=== PATIENT | male | born 1940 | race Caucasian/White ===

== ENCOUNTER → 2016-12-15 | Outpatient (CLI) | payer MEDICARE | END | disposition home or self-care (01) | LOC: CFH 10:19 | PROVIDERS: ATTEND Urology | DX: N20.0 Calculus of kidney (principal); Z80.42 Family history of malignant neoplasm of prostate | CPT/HCPCS: 74000 ==

== ENCOUNTER → 2017-11-16 | Outpatient (CLI) | payer MEDICARE | END | disposition home or self-care (01) | LOC: CFH 14:58 | PROVIDERS: ATTEND Dermatology | DX: C43.9 Malignant melanoma of skin, unspecified (principal) | CPT/HCPCS: 71046 ==

== ENCOUNTER 2020-03-15 08:13 | Outpatient (CLI) | payer MEDICARE | END 2020-03-15 23:59 | disposition home or self-care (01) | LOC: CFH 08:13 | PROVIDERS: ATTEND Urology | DX: N20.0 Calculus of kidney (principal) | CPT/HCPCS: 74018 ==

== ENCOUNTER → 2021-03-17 | Outpatient (CLI) | payer MEDICARE | END | disposition home or self-care (01) | LOC: RAD 10:21 | PROVIDERS: ATTEND Urology | DX: N20.0 Calculus of kidney (principal) | CPT/HCPCS: 74018 ==